=== PATIENT | male | born 1995 ===

== ENCOUNTER 2017-05-14 17:17 | Emergency (ER) | payer MEDICAID ==
[2017-05-14 17:24] VITALS: BP 120/71; PULSE 64; RESP 18; TEMP 98.4; O2SAT 98
[2017-05-14] MEDS ORDERED: Lidocaine 2% Inj (20ml) INFIL ONE (17:53)
[2017-05-14] MEDS ORDERED: Lidocaine 2% Inj (20ml) ONE (17:55)
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
== END 2017-05-14 18:48 | disposition home or self-care (01) ==
LOC: C.ER 17:17
DX: S01.511A Laceration without foreign body of lip, initial encounter (principal); S01.512A Laceration without foreign body of oral cavity, initial encounter; Y04.0XXA Assault by unarmed brawl or fight, initial encounter; Z23 Encounter for immunization